=== PATIENT | male | born 1985 | race Caucasian/White ===

== ENCOUNTER 2025-08-15 00:20 | Inpatient (IN) | payer OTHER ==
[2025-08-15] VITALS (7 sets, daily range): BP systolic 96–124; BP diastolic 56–86
[~2025-08-15] VITALS: Ht 172.7 cm; Wt 58.3 kg
[2025-08-15] MEDS ORDERED: SODIUM CHLORIDE 0.9% 1,000 ML IV ONE (01:00)
[2025-08-15 01:08] LABS: MEAN CELL VOLUME 86.3 fl (80.0-94.0); MEAN CORPUSCULAR HGB 28.8 pg (27.0-31.0); MEAN PLATELET VOLUME 10.2 fl (9.6-12.3); NUCLEATED RED BLOOD CELL 0.0 % (0.0-0.0); NUCLEATED RED BLOOD CELL 0.0 10*3/uL (0.0-0.0); PLATELET COUNT AUTOMATED 156 10*3/uL (130-400); RED CELL DISTRI WIDTH 12.7 % (0-14.5)
[2025-08-15 01:10] LABS: MANUAL DIFF REFLEX YES
[2025-08-15 01:27] LABS: BUN 27 mg/dl (9-23)
[2025-08-15 01:37] LABS: PLATELET SUFFICIENCY NORMAL (NORMAL)
[2025-08-15] MEDS ORDERED: SODIUM CHLORIDE 0.9% 1,000 ML IV SCH (02:25)
[2025-08-15] MEDS ORDERED: AZITHROMYCIN 250 ML IV ONE (02:25)
[2025-08-15] MEDS ORDERED: BISACODYL 5 MG TAB PO PRN (03:05)
[2025-08-15] MEDS ORDERED: BISACODYL 10 MG SUPP R PRN (03:05)
[2025-08-15] MEDS ORDERED: ACETAMINOPHEN 650 MG SUPP R PRN (03:05)
[2025-08-15] MEDS ORDERED: Ondansetron Hydrochloride 4 MG/2 ML VIAL IV PRN (03:05)
[2025-08-15] MEDS ORDERED: ACETAMINOPHEN 325 MG TAB PO PRN (03:05)
[2025-08-15] MEDS ORDERED: Acetaminophen/Hydrocodone 5 MG/325 MG TABLET PO PRN (03:05)
[2025-08-15] MEDS ORDERED: GUAIFENESIN 600 MG TAB ER PO SCH (03:25)
[2025-08-15 06:23] LABS: MEAN CELL VOLUME 86.6 fl (80.0-94.0); MEAN CORPUSCULAR HGB 29.3 pg (27.0-31.0); MEAN PLATELET VOLUME 10.9 fl (9.6-12.3); NUCLEATED RED BLOOD CELL 0.0 % (0.0-0.0); NUCLEATED RED BLOOD CELL 0.0 10*3/uL (0.0-0.0); PLATELET COUNT AUTOMATED 141 10*3/uL (130-400); RED CELL DISTRI WIDTH 12.8 % (0-14.5)
[2025-08-15 06:24] LABS: ACT PARTIAL THROMBO TIME 29.1 SECONDS (20.0-32.1)
[2025-08-15 06:31] LABS: MANUAL DIFF REFLEX YES
[2025-08-15 06:35] LABS: BUN 24 mg/dl (9-23); FREE T4 0.71 ng/dl (0.89-1.76); SGPT/ALT 43 U/L (5-49)
[2025-08-15 06:42] LABS: LDL CHOLESTEROL 53 mg/dL (9-159)
[2025-08-15 06:59] LABS: PLATELET SUFFICIENCY NORMAL (NORMAL)
[2025-08-15 08:44] LABS: VITAMIN D, 25-HYDROXY 19.8 ng/mL (30-100)
[2025-08-15] MEDS ORDERED: AZITHROMYCIN 250 ML IV SCH (22:00)
[2025-08-16] VITALS: BP 97/56
[2025-08-16 06:51] LABS: BASO # 0.0 10*3/uL (0.0-0.1); BASO % 0.2 % (0.0-1.0); EOS # 0.1 10*3/uL (0.0-0.4); EOS % 0.6 % (1.0-4.0); MEAN CELL VOLUME 85.8 fl (80.0-94.0); MEAN CORPUSCULAR HGB 29.0 pg (27.0-31.0); MEAN PLATELET VOLUME 11.0 fl (9.6-12.3); MONO # 0.5 10*3/uL (0.1-1.0); MONO % 5.3 % (3.0-9.0); NEUT # 7.4 10*3/uL (2.3-7.9); NEUT % 78.1 % (47.0-73.0); NUCLEATED RED BLOOD CELL 0.0 % (0.0-0.0); NUCLEATED RED BLOOD CELL 0.0 10*3/uL (0.0-0.0); PLATELET COUNT AUTOMATED 155 10*3/uL (130-400); RED CELL DISTRI WIDTH 12.9 % (0-14.5)
[2025-08-16 07:18] LABS: BUN 17 mg/dl (9-23)
[2025-08-16 08:00] VITALS: BP 113/53
[2025-08-16 12:00] VITALS: BP 105/59
[2025-08-16 16:00] VITALS: BP 106/59
[2025-08-16 20:00] VITALS: BP 105/55
[2025-08-17] VITALS: BP 113/67
[2025-08-17 03:55] LABS: BILIRUBIN Negative (Negative); BLOOD Negative (Negative); CLARITY Clear (Clear); COLOR Yellow (Yellow); KETONE Negative (Negative); LEUKO ESTERASE Negative (Negative); NITRITE Negative (Negative); PH 6.0 (4.5-8.0); SPECIFIC GRAVITY 1.020 (1.001-1.030); UROBILINOGEN 1.0 E.U./dl (0.0-1.0)
[2025-08-17 05:03] LABS: RBC 0-2 rbc/hpf (0-2); WBC 0-2 wbc/hpf (0-5)
[2025-08-17 06:41] LABS: BASO # 0.1 10*3/uL (0.0-0.1); BASO % 0.8 % (0.0-1.0); EOS # 0.2 10*3/uL (0.0-0.4); EOS % 2.6 % (1.0-4.0); MEAN CELL VOLUME 87.1 fl (80.0-94.0); MEAN CORPUSCULAR HGB 28.9 pg (27.0-31.0); MEAN PLATELET VOLUME 10.5 fl (9.6-12.3); MONO # 0.5 10*3/uL (0.1-1.0); MONO % 7.3 % (3.0-9.0); NEUT # 3.4 10*3/uL (2.3-7.9); NEUT % 54.8 % (47.0-73.0); NUCLEATED RED BLOOD CELL 0.0 % (0.0-0.0); NUCLEATED RED BLOOD CELL 0.0 10*3/uL (0.0-0.0); PLATELET COUNT AUTOMATED 200 10*3/uL (130-400); RED CELL DISTRI WIDTH 12.8 % (0-14.5)
[2025-08-17 06:45] LABS: BUN 17 mg/dl (9-23)
[2025-08-17 08:00] VITALS: BP 107/48
[2025-08-17] MEDS ORDERED: Cholecalciferol 2,000 UNIT TABLET (50 MCG) PO SCH (10:00)
[2025-08-17] MEDS ORDERED: VITAMIN D350 MCG PO ×2 (11:02→13:19)
[2025-08-17] MEDS ORDERED: DOXYCYCLINE HY100 M3 PO ×2 (11:02→13:19)
[2025-08-17 12:00] VITALS: BP 110/63
== END 2025-08-17 13:30 | disposition home or self-care (01) | DRG 871 ==
LOC: ED 00:20 → EDHOLD 02:41 → 5E 02:41 → 4E 08-16 06:46
PROVIDERS: Emergency Medicine; Student in an Organized Health Care Education/Training Program; ADMIT Internal Medicine; ATTEND Internal Medicine
DX: A41.9 Sepsis, unspecified organism (principal); E43 Unspecified severe protein-calorie malnutrition; J15.69 Pneumonia due to other Gram-negative bacteria; Z68.1 Body mass index [BMI] 19.9 or less, adult; D64.9 Anemia, unspecified; F17.210 Nicotine dependence, cigarettes, uncomplicated; E55.9 Vitamin D deficiency, unspecified; J43.9 Emphysema, unspecified; Z20.822 Contact with and (suspected) exposure to COVID-19; Z71.6 Tobacco abuse counseling; Z82.49 Family history of ischemic heart disease and other diseases of the circulatory system